=== PATIENT | female | born 1980 | race Caucasian/White ===

== ENCOUNTER → 2024-07-07 | Outpatient (CLI) | payer BC ==
--- NOTE | 2024-07-07 14:41 | XR ---
EXAMINATION TYPE: XR ribs RT w pa chest xray, 5 views DATE OF EXAM: 07/07/2024 10:21 AM COMPARISON: None CLINICAL INDICATION: Female, 43 years old with history of R52 pain trauma; PHH, pain FINDINGS: Heart normal size. Aorta and pulmonary vasculature within normal limits. No consolidation, pneumothor ax, or pleural effusion. No displaced right rib fracture is seen. IMPRESSION: No displaced right rib fracture is seen. No acute cardiopulmonary process. [facility], Workstation: [id number], 07/07/2024 2:39 PM
== END | disposition home or self-care (01) ==
LOC: RADXRMAIN 10:04
PROVIDERS: ATTEND Internal Medicine Clinical Cardiac Electrophysiology
DX: S29.9XXA Unspecified injury of thorax, initial encounter (principal); X58.XXXA Exposure to other specified factors, initial encounter